=== PATIENT | female | born 1990 | race African-American/Black ===

== ENCOUNTER 2016-08-28 13:42 | Emergency (ER) | payer MEDICAID ==
[~2016-08-28] VITALS: Ht 165.1 cm; Wt 81.6 kg
[~2016-08-28 13:42] MED LIST: IBUPROFEN600 MG ORAL; METRONIDAZOLE500 MG ORAL
[2016-08-28] MEDS ORDERED: IBUPROFEN600 MG ORAL (14:12)
[2016-08-28] MEDS ORDERED: CYCLOBENZAPRINE10 MG ORAL (14:12)
[2016-08-28] MEDS ORDERED: AMOXICILLIN500 MG ORAL (14:14)
[2016-08-28] MEDS ORDERED: ALPRAZOLAM0.25 MG ORAL (14:22)
[2016-08-28 14:26] VITALS: BP 119/77
--- NOTE | 2016-08-28 19:06 | Emergency Room Report ---
History of Present Illness General Chief Complaint: General Complaint Source: Patient Present Illness HPI 26-year-old female presents to ED for evaluation. Complaining of jaw pain which started yesterday. Pain is sharp. 10 out of 10. Worse with opening and closing the jaw. Radiating to the temples. Also complaining of tooth pain. No other agreed or relieving factors. Denies any fevers or chills. She states she is also having chest pain. Midsternal. Worse with deep breaths. 7/10. Dull. No other aggravating or relieving factors. Denies shortness of breath. Denies smoking or drug use. Patient has history of anxiety and having panic attacks. Denies any suicidal or homicidal ideation. Denies hearing voices. No aggravating relieving factors. Denies any other associated symptoms Allergies: Coded Allergies: No Known Allergies (Unverified , 04/24/16) Patient History Past Medical History: none Past Surgical History: none Pertinent Family History: none Social History: Denies: alcohol use, drug use, smoking Last Menstrual Period: 3-3 Now: No Immunizations: UTD Reviewed Nursing Documentation: PMH: Agreed, PSxH: Agreed Nursing Documentation-PMH Past Medical History: No Stated History Review of Systems All Other Systems: negative except mentioned in HPI Physical Exam Vital Signs Date Time Temp Pulse Resp B/P Pulse Ox O2 Delivery O2 Flow Rate FiO2 08/28/16 13:45 97.9 77 18 107/69 98 Room Air Sp02 EP Interpretation: reviewed, normal General Appearance: no apparent distress, alert, GCS 15, non-toxic Head: normocephalic, atraumatic Eyes: bilateral eye PERRL, bilateral eye normal inspection ENT: hearing grossly normal, normal pharynx, no angioedema, normal voice, other - L lower molar pain Neck: full range of motion, supple/symm/no masses Respiratory: lungs clear, normal breath sounds, speaking full sentences, other - reproducibel chest wall pain Cardiovascular #1: regular rate, rhythm, no edema Cardiovascular #2: 2+ carotid (R), 2+ carotid (L), 2+ radial (R), 2+ radial (L) , 2+ dorsalis pedis (R), 2+ dorsalis pedis (L) Gastrointestinal: normal bowel sounds, non tender, soft, non-distended, no guarding, no rebound Rectal: deferred Genitourinary: normal inspection, no CVA tenderness Musculoskeletal: back normal, gait/station normal, normal range of motion, non- tender Neurologic: alert, oriented x3, responsive, motor strength/tone normal, sensory intact, speech normal Psychiatric: judgement/insight normal, memory normal, mood/affect normal, no suicidal/homicidal ideation Reflexes: 3+ bicep (R), 3+ bicep (L), 3+ tricep (R), 3+ tricep (L), 3+ knee (R) , 3+ knee (L) Skin: normal color, no rash, warm/dry, well hydrated Lymphatic: no adenopathy Medical Decision Making Diagnostic Impression: Primary Impression: Tooth pain Additional Impression: Strain of chest wall Qualified Codes: S29.011A - Strain of muscle and tendon of front wall of thorax, initial encounter ER Course 22-year-old female presents ED complaining of tooth pain, jaw pain, complaining of chest pain. differnetial - Cracked tooth, dental abscess, cavity, muscle strain, SC Patient placed on stretcher. After initial history, physical exam reveals a young female in mild distress. The tooth in question is tender to palpation. No surrounding abscess. No induration or swelling. Chest pain is reproducible. EKG unremarkable. Given lack risk factors I see no reason for further workup including labs Diagnosis- tooth pain, strain of chest wall Stable and discharged to home prescription for amoxicillin, motrin, flexeril. Instructed to see dentist as a walk-in this week. Return to ED if symptoms recur or worse EKG Diagnostic Results Rate: normal Rhythm: NSR ST Segments: no acute changes ASA given to the pt in ED: No Rhythm Strip Diag. Results EP Interpretation: yes Rhythm: NSR, no PVC's, no ectopy Last Vital Signs Date Time Temp Pulse Resp B/P Pulse Ox O2 Delivery O2 Flow Rate FiO2 08/28/16 14:26 98.0 71 18 119/77 98 Room Air Status: improved Disposition: HOME, SELF-CARE Condition: Stable Scripts Alprazolam* (XANAX*) 0.25 Mg Tablet 0.25 MG ORAL TID Y for For Anxiety, #20 TAB Prov: MITCH MCKAY M.D. 08/28/16 Amoxicillin* (AMOXIL*) 500 Mg Capsule 500 MG ORAL THREE TIMES A DAY, #21 CAP Prov: MITCH MCKAY M.D. 08/28/16 Cyclobenzaprine Hcl* (FLEXERIL*) 10 Mg Tablet 10 MG ORAL TID Y for Muscle Spasm, #20 TAB Prov: MITCH MCKAY M.D. 08/28/16 Ibuprofen* (MOTRIN*) 600 Mg Tablet 600 MG ORAL Q8H Y for For Pain, #30 TAB 0 Refills Prov: MITCH MCKAY M.D. 08/28/16 Referrals: NON PHYSICIAN (PCP) Patient Instructions: Chest Wall Pain, Atvi-ve-Yhrs MITCH MCKAY M.D. Aug 28, 2016 19:06
--- NOTE | 2016-08-29 11:21 | Cardiology Report ---
APPROVED REPORT EKG Measurement Heart [id number] Normal sinus rhythm Normal ECG
== END 2016-08-28 14:26 | disposition home or self-care (01) ==
LOC: EMR 14:10
DX: K08.89 Other specified disorders of teeth and supporting structures (principal); S29.011A Strain of muscle and tendon of front wall of thorax, initial encounter; X58.XXXA Exposure to other specified factors, initial encounter; Y92.9 Unspecified place or not applicable; Y99.8 Other external cause status
CPT/HCPCS: 93005; 99284

== ENCOUNTER 2016-12-31 07:34 | Emergency (ER) | payer MEDICAID ==
[~2016-12-31] VITALS: Ht 165.1 cm; Wt 83.0 kg
[~2016-12-31 07:34] MED LIST changes: +ALPRAZOLAM0.25 MG ORAL; +AMOXICILLIN500 MG ORAL; +CYCLOBENZAPRINE10 MG ORAL
[2016-12-31 07:46] VITALS: BP 110/77
[2016-12-31] MEDS ORDERED: NKM (07:50)
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
[2016-12-31] MEDS ORDERED: XANAX0.25 MG ORAL (08:00)
[2016-12-31 08:04] VITALS: BP 110/77
== END 2016-12-31 08:04 | disposition home or self-care (01) ==
LOC: EMR 08:00
DX: F41.9 Anxiety disorder, unspecified (principal)
CPT/HCPCS: 99283

== ENCOUNTER 2017-03-08 10:30 | Emergency (ER) | payer MEDICAID ==
[~2017-03-08] VITALS: Ht 165.1 cm; Wt 86.2 kg
[~2017-03-08 10:30] MED LIST changes: +NKM; +XANAX0.25 MG ORAL
[2017-03-08 10:48] VITALS: BP 118/65
[2017-03-08] MEDS ORDERED: ALPRAZolam 0.5mg tab ORAL ONE (11:00)
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
[2017-03-08 12:10] VITALS: BP 120/66
[2017-03-08 12:27] VITALS: BP 120/66
--- NOTE | 2017-03-11 19:40 | Cardiology Report ---
APPROVED REPORT EKG Measurement Heart [id number] Normal sinus rhythm Normal ECG T wave anteriro ly in v1-v3 clinical correlateion recommneded
== END 2017-03-08 12:15 | disposition home or self-care (01) ==
LOC: EMR 10:55
DX: F41.9 Anxiety disorder, unspecified (principal); R00.2 Palpitations
CPT/HCPCS: 93005; 99283

== ENCOUNTER 2018-06-07 21:14 | Emergency (ER) | payer MEDICAID | END 2018-06-07 21:31 | disposition left against medical advice (07) | LOC: EMR 21:16 | DX: S51.811A Laceration without foreign body of right forearm, initial encounter (principal); Z53.21 Procedure and treatment not carried out due to patient leaving prior to being seen by health care provider ==